=== PATIENT | female | born 1940 | race Caucasian/White ===

== ENCOUNTER → 2016-08-17 15:10 | Outpatient (CLI) | payer MEDICARE, OTHER, BC ==
[2009-11-05 09:42] VITALS: BMI 29.2
== END | disposition home or self-care (01) ==
LOC: D.US 15:10
DX: R10.32 Left lower quadrant pain (principal)

== ENCOUNTER → 2016-09-08 09:11 | Outpatient (CLI) | payer MEDICARE, OTHER, BC ==
[2009-11-05 09:42] VITALS: BMI 29.2
== END | disposition home or self-care (01) ==
LOC: D.CT 09:11
DX: Z12.31 Encounter for screening mammogram for malignant neoplasm of breast (principal); R10.814 Left lower quadrant abdominal tenderness

== ENCOUNTER → 2016-09-23 16:53 | Outpatient (CLI) | payer MEDICARE, OTHER, BC ==
[2009-11-05 09:42] VITALS: BMI 29.2
== END | disposition home or self-care (01) ==
LOC: D.MAMMO 15:30
DX: Z12.31 Encounter for screening mammogram for malignant neoplasm of breast (principal)

== ENCOUNTER → 2017-08-07 10:57 | Outpatient (CLI) | payer MEDICARE, OTHER, BC ==
[2009-11-05 09:42] VITALS: BMI 29.2
== END | disposition home or self-care (01) ==
LOC: D.MRI 10:57
DX: M54.5 Low back pain (principal)

== ENCOUNTER 2018-05-31 17:24 | Outpatient (CLI) | payer MEDICARE, OTHER, BC ==
[2009-11-05 09:42] VITALS: BMI 29.2
== END 2018-05-31 17:25 | disposition home or self-care (01) ==
LOC: D.MAMMO 17:24
PROVIDERS: ATTEND Emergency Medicine
DX: Z12.31 Encounter for screening mammogram for malignant neoplasm of breast (principal)

== ENCOUNTER → 2018-09-03 10:27 | Outpatient (CLI) | payer MEDICARE, OTHER, BC ==
[2009-11-05 09:42] VITALS: BMI 29.2
--- NOTE | ~2018-09-03 | ST ---
PATIENT:TIMOTHY CARPIO MEDICAL RECORD: [id number] SEX: F LOCATION:[facility] ORDER #: ADMISSION DATE: 09/03/18 AGE OF PATIENT: 78 REFERRING PHYSICIAN: INTERPRETING PHYSICIAN: DOMI SWANSON MD DATE OF SERVICE: 09/03/2018 Nuclear Stress Test INDICATION: Angina, shortness of breath, hypertension, and hyperlipidemia. She was exercised on standard Lexiscan protocol with 33 mCi of sestamibi injected at peak stress, 11 mCi used previously for rest images. FINDINGS: Gated SPECT reveals preserved ejection fraction at 89% with good wall motion and thickening and brightening throughout all segments. SPECT imaging Cardiolite was used as myocardial fusion agent. There is homogeneous uptake throughout all segments at rest and stress with no evidence of inducible ischemia or previous infarction. OVERALL IMPRESSION: 1. This is a normal nuclear stress test with no evidence of inducible ischemia or previous infarction. 2. Gated SPECT reveals a preserved ejection fraction at 89%. In this patient with ongoing symptomatology, the current scan does not suggest the presence of hemodynamically significant coronary artery disease. Evaluate noncardiac etiology of chest pain. TRANSINT:[id number] Voice Confirmation ID: [id number] DOCUMENT ID: [id number] DOMI SWANSON MD CC: [id number] DEMPSEY [id number] DICTATION DATE: 09/03/18 1655 DIRECTOR OF CLAIMS: 09/04/18 0503 DEP CLI 09/03/18 [id number] [place] [address]
--- NOTE | ~2018-09-03 | EC ---
PATIENT:TIMOTHY CARPIO DATE OF SERVICE: 09/03/18 SEX: F MEDICAL RECORD: [id number] DATE OF : 40 [facility] AGE OF PATIENT: 78 ADMISSION DATE: 09/03/18 REFERRING PHYSICIAN: INTERPRETING PHYSICIAN: DOMI GLORIA MD ECHOCARDIOGRAM REPORT ECHO CHARGES 4 ECHO COMPLETE Date: 09/03/18 CLINICAL DIAGNOSIS: HTN ECHOCARDIOGRAPHIC MEASUREMENTS (adult normal given) AC root (d.<3.7cm) 3.2 cm LV Septum d (<1.2 cm> 1.3 cm Valve Excursion 1.0 cm LV Septum (systole) 1.6 cm Left Atria (s.<4.0cm> 3.4 cm LVPW d(<1.2cm) 1.5 cm RV (d.<2.3cm) 2.5 cm LVPW (sytole) 1.7 cm LV diastole(<5.6CM) 3.9 cm MV E-F(>70mm/sec) cm LV systole 2.4 cm LVOT Diameter 1.4 cm MV exc.(>10mm) 1.0 cm Est.ejection fraction (50-75%) % DOPPLER: LVIT cm/sec A 106 cm/sec E 66.0 cm/sec LA cm/sec RVSP 30 mmHg LVOT 151 cm/sec AOP1/2T m/s Asc. Ao 204 cm/sec RVOT 131 cm/sec RA cm/sec PA 155 cm/sec AV Gradient Peak 16.72mmHg AV Mean 8.39 mmHg AV Area 1.4 cm MV Gradient Peak 5.40 mmHg MV Mean 1.67 mmHg MV Area cm COMMENTS: Formula Weigher: Prasanna WATSON Facilities Locator: 1 Dr. Gloria TAPE# PACS Pericardial Effusion N DATE OF SERVICE: ECHOCARDIOGRAM FINDINGS: 1. Left ventricular chamber size is within normal limits. Left ventricular systolic function is normal. Overall ejection fraction estimated at 65%. 2. Left atrium, right atrium, and right ventricular size is within normal limits. 3. Valvular structures have normal structure and motion. ECHOCARDIOGRAM REPORT [id number] TIMOTHY CARPIO 4. Doppler interrogation reveals mild mitral regurgitation, mild tricuspid regurgitation, no other valvular insufficiency or stenosis. Pulmonary systolic pressure is estimated 30 mmHg. 5. No evidence of pericardial effusion or left ventricular thrombus. TRANSINT:[id number] Voice Confirmation ID: [id number] DOCUMENT ID: [id number] DOMI GLORIA MD CC: [id number] DICTATION DATE: 09/03/18 165 ESCORT SERVICE ATTENDANT: 09/03/18 1857 REG [facility] [address] [id number]
== END | disposition home or self-care (01) ==
LOC: D.HCCARDIO 10:27
PROVIDERS: ATTEND Internal Medicine Interventional Cardiology
DX: I20.9 Angina pectoris, unspecified (principal); I10 Essential (primary) hypertension

== ENCOUNTER → 2018-12-20 14:10 | Outpatient (CLI) | payer MEDICARE, OTHER, BC ==
[2009-11-05 09:42] VITALS: BMI 29.2
== END | disposition home or self-care (01) ==
LOC: D.RAD 14:10
PROVIDERS: ATTEND Physical Medicine & Rehabilitation Pain Medicine
DX: G89.29 Other chronic pain (principal)

== ENCOUNTER 2019-07-22 14:40 | Emergency (ER) | payer MEDICARE, OTHER, BC ==
[~2019-07-22] VITALS: Ht 162.6 cm; Wt 72.7 kg
[~2019-07-22 14:40] MED LIST: CATAPRES0.1 MG PO; LOSARTAN-HCTZ1 EAC1 PO; NORVASC5 MG PO
[2019-07-22 15:38] VITALS: Ht 162.6 cm; Wt 72.7 kg
[2019-07-22 16:22] LABS: BASOPHILS 0.3 % (0-2); EOSINOPHILS 1.1 % (0-7); HEMATOCRIT 42.6 % (36.0-48.0); IMMATURE GRANULOCYTES 0.2 % (0-5); LYMPHOCYTES 26.2 % (15-50); MCHC 32.9 g/dL (31.0-37.0); MCV 91.2 fL (80.0-100.0); MONOCYTES 8.2 % (2-11); PLATELET COUNT 206 10x3/uL (130-400); RBC 4.67 10x6/uL (4.00-5.40); RDW 13.6 % (11.5-14.5); WBC 6.4 10x3/uL (4.8-10.8)
[2019-07-22 16:31] LABS: CALC OSMOLALITY 280 mosm/kg (275-300); CALCIUM 8.5 mg/dL (8.5-10.1); CARBON DIOXIDE 26.2 mmol/L (21.0-32.0); CHLORIDE - SERUM 106 mmol/L (98-107); CREATININE - SERUM 1.3 mg/dL (0.6-1.3); GLUCOSE 91 mg/dL (74-106); POTASSIUM - SERUM 3.8 mmol/L (3.5-5.1); SODIUM 140 mmol/L (136-145); UREA NITROGEN 18 mg/dL (7-18); eGFR NON AFRICAN AMERICAN 42 mL/min (90-120)
[2019-07-22 16:32] LABS: APTT 31.8 SECONDS (22.8-39.4); INR 1.12 (0.85-1.17); PROTIME 14.3 SECONDS (11.6-15.0)
[2019-07-22 16:47] LABS: ALBUMIN 3.8 g/dL (3.4-5.0); ALKALINE PHOSPHATASE 87 U/L (30-120); ALT (SGPT) 21 U/L (10-68); BILIRUBIN - TOTAL 0.68 mg/dL (0.2-1.3); CREATINE KINASE 32 UL (21-215); MAGNESIUM - SERUM 1.9 mg/dL (1.8-2.4)
[2019-07-22 16:49] LABS: TROPONIN-I < 0.017 ng/mL (0.000-0.060)
[2019-07-22] MEDS ORDERED: BETAPACE 80 MG80 MG PO (17:09)
[2019-07-22 18:48] VITALS: BP 101/70
== END 2019-07-22 18:48 | disposition home or self-care (01) ==
LOC: D.ER 14:40
PROVIDERS: Family Medicine
DX: I48.91 Unspecified atrial fibrillation (principal); I10 Essential (primary) hypertension; E78.5 Hyperlipidemia, unspecified

== ENCOUNTER 2020-05-12 10:30 | Outpatient (CLI) | payer MEDICARE ==
[2019-07-22 15:38] VITALS: BMI 27.5
[~2020-05-12 10:30] MED LIST changes: +BETAPACE 80 MG80 MG PO
== END 2020-05-12 23:59 | disposition home or self-care (01) ==
LOC: D.MAMMO 10:30
PROVIDERS: ATTEND Emergency Medicine
DX: Z12.31 Encounter for screening mammogram for malignant neoplasm of breast (principal)